=== PATIENT | male | born 1990 | race African-American/Black ===

== ENCOUNTER 2017-10-31 16:28 | Emergency (ER) | payer SELFPAY, OTHER ==
[2017-10-31] MEDS: SOD CHLORIDE 0.9% IV (18:16)
[2017-10-31] MEDS: KETOROLAC 30 MG INJ IV (18:16)
[2017-10-31] MEDS: ACETAMINOPHEN 500 MG TAB PO (18:16)
[2017-10-31 18:27] LABS: ADD MAN DIFF? NO
[2017-10-31 18:31] LABS: WHITE BLOOD COUNT 18.1 10^3/ul (4.8-10.8)
[2017-10-31 18:31] LABS: BASOPHIL # 0.1 10^3/ul (0.0-0.1); BASOPHILS % 0.3 % (0.0-2.0); HEMATOCRIT 43.8 % (42.0-52.0); LYMPHOCYTES # 1.5 10^3/ul (0.8-2.9); LYMPHOCYTES % 8.5 % (15.0-51.0); MEAN CORPUSCULAR HEMOGLOBIN 29.9 pg (29.0-33.0); MEAN CORPUSCULAR HGB CONC 34.2 g/dl (32.0-37.0); MEAN CORPUSCULAR VOLUME 87.3 fl (82.0-101.0); MONOCYTE # 1.5 10^3/ul (0.3-0.9); MONOCYTES % 8.3 % (0.0-11.0); NEUTROPHIL # 14.9 10^3/ul (1.6-7.5); NEUTROPHILS % 82.3 % (39.0-77.0); PLATELET COUNT 235 10^3/UL (140-415); RED BLOOD COUNT 5.02 10^6/ul (4.70-6.10); RED CELL DISTRIBUTION WIDTH 13.4 % (11.5-14.5)
[2017-10-31 18:53] LABS: ANION GAP 14 (8-16); BLOOD UREA NITROGEN 15 mg/dl (7-20); CALCIUM 9.5 mg/dl (8.4-10.2); CARBON DIOXIDE 30 mmol/L (21-31); CHLORIDE 102 mmol/L (97-110); CREATININE 1.35 mg/dl (0.61-1.24); GLUCOSE 103 mg/dl (70-220); POTASSIUM 3.6 mmol/L (3.5-5.1); SODIUM 142 mmol/L (135-144)
[2017-10-31] MEDS: morphine 4 MG/ML VIAL IV (19:13)
[2017-10-31 19:43] LABS: LACTIC ACID 1.1 mmol/L (0.5-2.0)
[2017-10-31] MEDS: SOD CHLORIDE 0.9% 1,000 ML IV (20:24)
[2017-10-31] MEDS: CEFTRIAXONE 1 GM/50 ML (PMX) 50 ML IVPB (20:24)
[2017-10-31] MEDS: IPRATROPIUM (NEB) 0.5 MG/2.5 ML AMP HHN (20:26)
[2017-10-31] MEDS: ALBUTEROL 0.083% (NEB) 2.5 MG/3 ML AMP HHN (20:26)
[2017-10-31 20:50] LABS: ADD UMIC YES; UR ASCORBIC ACID NEGATIVE (NEGATIVE); UR BILIRUBIN (Dip) NEGATIVE (NEGATIVE); UR BLOOD (Dip) 1+ mg/dL (NEGATIVE); UR CLARITY SLIGHTLY CLOUDY (CLEAR); UR COLOR AMBER (YELLOW); UR GLUCOSE (Dip) NEGATIVE (NEGATIVE); UR KETONES (Dip) TRACE mg/dL (NEGATIVE); UR LEUKOCYTE ESTERASE (Dip) NEGATIVE Leu/ul (NEGATIVE); UR MUCUS MANY /HPF (NONE SEEN); UR NITRITE (Dip) NEGATIVE (NEGATIVE); UR RBC 10 /HPF (0-5); UR SPECIFIC GRAVITY (Dip) 1.032 (1.003-1.030); UR TOTAL PROTEIN (Dip) 2+ mg/dl (NEGATIVE); UR UROBILINOGEN (Dip) 1+ mg/dL (NEGATIVE); UR WBC 1 /HPF (0-5)
== END 2017-10-31 22:12 | disposition home or self-care (01) ==
LOC: E/R 16:28
DX: R05 Cough (principal); L08.9 Local infection of the skin and subcutaneous tissue, unspecified
CPT/HCPCS: 36415; 71045; 80048; 81001; 83605; 85025; 87040; 87400; 94664; 96374; 96375; 99284-25